=== PATIENT | female | born 1995 | race American Indian/Alaskan Native ===

== ENCOUNTER 2018-07-09 14:50 | Outpatient (CLI) | payer MEDICAID ==
[2018-07-09 15:35] VITALS: BP 109/68
== END 2018-07-09 16:40 | disposition home or self-care (01) ==
LOC: TRG 14:50
PROVIDERS: ATTEND Obstetrics & Gynecology
DX: O47.1 False labor at or after 37 completed weeks of gestation (principal); Z3A.39 39 weeks gestation of pregnancy
CPT/HCPCS: 59025

== ENCOUNTER 2018-07-10 04:18 | Inpatient (IN) | payer MEDICAID ==
[2018-07-10] MEDS ORDERED: AMPICILLIN/NS 2 GM/100 ML 2 GM/100 ML BAG IV ONE ×2 (05:09→05:10)
[2018-07-10] MEDS ORDERED: SUBLIMAZE IV PRN (05:09)
[2018-07-10] MEDS ORDERED: BRETHINE SUB-Q PRN (05:09)
[2018-07-10] MEDS ORDERED: STADOL IV PRN (05:09)
[2018-07-10] MEDS ORDERED: ZOFRAN IV PRN ×2 (05:09→08:37)
[2018-07-10] MEDS ORDERED: BRETHINE IVP PRN (05:09)
[2018-07-10] MEDS ORDERED: MINERAL OIL PO PRN (05:09)
[2018-07-10] MEDS ORDERED: XYLOCAINE 2% INFILTRATI ONE (05:09)
[2018-07-10] MEDS ORDERED: NARCAN 0.4 MG/1 ML IV PRN (05:09)
[2018-07-10] MEDS ORDERED: LACTATED RINGERS 1,000 ML ONE (05:10)
[2018-07-10] MEDS ORDERED: PITOCin/NS 30 UNIT/500ML 30 UNITS/500 ML BAG IV SCH (05:12)
[2018-07-10] MEDS ORDERED: ZITHROMAX PO ONE (05:13)
[2018-07-10 05:23] LABS: Hematocrit 27.2 % (30.3-42.9); Mean Corpuscular HGB Conc 33 % (30-34); Mean Corpuscular Volume 72 fl (79-97); Platelet Count 258 K/mm3 (140-440)
[2018-07-10 05:24] LABS: Red Cell Distribution Width 20.8 % (13.2-15.2)
--- NOTE | 2018-07-10 05:35 | History and Physical Report ---
History of Present Illness Date of examination: 07/10/18 Date of admission: 07/10/18 04:18 Chief complaint: contractions, leaking fluid History of present illness: Pt is a 23 year old -[place] female ADRIAN 07/12/18 at 39w5d who presents with regular contractions and advanced cervical dilation of 6 cm. She reports contractions all day and was discharged from triage earlier in 1 cm. She also reports leakage of fluid. 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 She is GBS positive. Past History Past Medical History: asthma Past Surgical History: no surgical history [employer] History: chlamydia (multiple times, positive on 06/21/18, treated on 06/30/18 ), herpes, trichomonas (treated with negative test of cure ) Family/Genetic History: diabetes, cancer Social history: no significant social history - Obstetrical History Expected Date of Delivery: 07/12/18 Actual Gestation: 39 Week(s) 5 Day(s) : 2 Para: 1 Hx # Term Pregnancies: 1 Number of Pregnancies: 0 Spontaneous Abortions: 0 Induced : 0 Number of Living Children: 1 Medications and Allergies Allergies Allergy/AdvReac Type Severity Reaction Status Date / Time No Known Allergies Allergy Verified 07/09/18 16:18 Home Medications Medication Instructions Recorded Confirmed Last Taken Type No Known Home Medications [No 07/09/18 07/09/18 Unknown History Reported Home Medications] Active Meds: Active Medications Butorphanol Tartrate (Stadol) 2 mg IV Q2H PRN PRN Reason: Pain , Severe (7-10) Ephedrine Sulfate (Ephedrine Sulfate) 10 mg IV Q2M PRN PRN Reason: Hypotension Fentanyl (Sublimaze) 100 mcg IV Q2H PRN PRN Reason: Labor Pain Oxytocin/Sodium Chloride (Pitocin/Ns 20 Unit/1000ml Drip) 20 units in 1,000 mls @ 125 mls/hr IV DIRECT SURESH Oxytocin/Sodium Chloride (Pitocin/Ns 30 Unit/500ml) 30 units in 500 mls @ 4 mls/hr IV TITR SURESH; Protocol Lactated Ringer's (Lactated Ringers) 1,000 mls @ 125 mls/hr IV DIRECT SURESH Ampicillin Sodium (Polycillin/Ns 2 Gm/100 Ml) 2 gm in 100 mls @ 100 mls/hr IV ONCE ONE; Protocol Stop: 07/10/18 06:08 Ampicillin Sodium (Ampicillin/Ns 1 Gm/50 Ml) 1 gm in 50 mls @ 100 mls/hr IV Q4HR SURESH; Protocol Mineral Oil (Mineral Oil) 30 ml PO QHS PRN PRN Reason: Constipation Naloxone HCl (Narcan 0.4 Mg/1 Ml) 0.1 mg IV Q2MIN PRN PRN Reason: Res Rate </= 8 or 02 SAT < 92% Ondansetron HCl (Zofran) 4 mg IV Q8H PRN PRN Reason: Nausea And Vomiting Terbutaline Sulfate (Brethine) 0.25 mg SUB-Q ONCE PRN PRN Reason: Hyperstimulation/Hypertonicity Terbutaline Sulfate (Brethine) 0.25 mg IVP ONCE PRN PRN Reason: Hyperstimulation/Hypertonicity Review of Systems All systems: negative - Vital Signs Vital signs: Vital Signs Pulse BP 98 H 123/60 07/10/18 04:26 07/10/18 04:26 Temp Pulse Resp BP Pulse Ox 98 H 123/60 07/10/18 04:26 07/10/18 04:26 - Physical Exam Breasts: Positive: deferred Cardiovascular: Regular rate Lungs: Positive: Clear to auscultation Abdomen: Positive: soft (gravid ) Uterus: Positive: enlarged (gravid ) Extremities: Positive: normal - Obstetrical FHR: auscultation normal Cervical Dilatation: 6.5 Cervical Effacement Percentage: 70 station: -2 Uterine Contraction Pattern: Regular Uterine Tone Measurement Phase: Resting Uterine Contraction Intensity: Strong/Firm Results Result Diagrams: 07/10/18 04:05 Abnormal lab results 07/10/18 Range/Units 04:05 WBC 13.3 H (4.5-11.0) K/mm3 Hgb 9.0 L (10.1-14.3) gm/dl Hct 27.2 L (30.3-42.9) % MCV 72 L (79-97) fl MCH 24 L (28-32) pg RDW 20.8 H (13.2-15.2) % All other labs normal. Assessment and Plan A: IUP at 39w5d Active labor Rupture of Membranes- Meconium GBS positive Chlamydia infection; most recent treatment on 06/30/18 with no test of cure P: Admit to labor and delivery GBS prophylaxis Azithromycin 1000 mg PO once Routine intrapartum care
[2018-07-10] MEDS ORDERED: PITOCin/NS 20 UNIT/1000ML DRIP 20 UNITS/1,000 ML BAG IV SCH ×2 (06:00→08:37)
[2018-07-10] MEDS ORDERED: LACTATED RINGERS 1,000 ML IV SCH (06:00)
[2018-07-10] MEDS ORDERED: CYTOTEC PR ONE (06:13)
[2018-07-10] MEDS ORDERED: CYTOTEC ONE (06:18)
--- NOTE | 2018-07-10 06:38 | Procedure Note ---
OB Delivery Note - Delivery Date of Delivery: 07/10/18 Surgeon: FARIDA MORALES Estimated blood loss: 500cc - Vaginal Delivery presentation: vertex Delivery position: OA Intrapartum events: decreased FHT variability, uterine atony (s/p Pitocin 10 units IM and Misoprostol 800 mcg per rectum ) Delivery monitor: external FHT, external uterine Route of delivery: Delivery placenta: spontaneous Episiotomy: none Delivery laceration: 1st degree (well approximating, hemostatic ), vaginal side wall (hemostatic ) Anesthesia: none - A at 1 minute: 8 at 5 minutes: 9 Gender: Male (3681g (8lb 2oz) @ 0605 am)
[2018-07-10] MEDS ORDERED: DERMOPLAST TP PRN (08:37)
[2018-07-10] MEDS ORDERED: NORCO 5/325 PO PRN (08:37)
[2018-07-10] MEDS ORDERED: TUCKS PAD TP PRN (08:37)
[2018-07-10] MEDS ORDERED: PHENERGAN PR PRN (08:37)
[2018-07-10] MEDS ORDERED: MILK OF MAGNESIA PO PRN (08:37)
[2018-07-10] MEDS ORDERED: SODIUM CHLORIDE FLUSH SYRINGE 10 ML IV NR (08:37)
[2018-07-10] MEDS ORDERED: PHENERGAN PO PRN (08:37)
[2018-07-10] MEDS ORDERED: LANSINOH TP PRN ×2 (08:37)
[2018-07-10] MEDS ORDERED: BENADRYL PO PRN (08:37)
[2018-07-10] MEDS ORDERED: TYLENOL PO PRN (08:37)
[2018-07-10] MEDS ORDERED: DULCOLAX PR PRN (08:37)
[2018-07-10] MEDS ORDERED: AMPICILLIN/NS 1 GM/50 ML 1 GM/50 ML BAG IV SCH (09:12)
[2018-07-10] MEDS: IBUPROFEN PO SCH ×2 (10:10→22:17)
[2018-07-10] MEDS: FEOSOL PO SCH ×2 (10:10→22:17)
[2018-07-10 20:21] LABS: Hematocrit 23.8 % (30.3-42.9); Hemoglobin 7.8 gm/dl (10.1-14.3)
[2018-07-11] MEDS: IBUPROFEN PO SCH ×2 (02:37→23:00)
[2018-07-11] MEDS ORDERED: BOOSTRIX IM ONE (06:00)
[2018-07-11] MEDS ORDERED: M-M-R II VACCINE SUB-Q ONE (06:38)
--- NOTE | 2018-07-11 08:35 | Progress Note ---
Assessment and Plan - Patient Problems (1) Vaginal delivery Current Visit: No Status: Acute Plan to address problem: patient doing well will need to be observed for 48 hours post delivery Subjective - Subjective Date of service: 07/11/18 Interval history: Patient doing well. Pain well controlled Patient reports: appetite normal, voiding normally, pain well controlled : doing well Objective - Vital Signs Latest vital signs: Vital Signs Temp Pulse Resp BP BP Pulse Ox 07/10/18 23:56 99.7 F H 72 18 96/59 99 07/10/18 19:41 98.5 F 93 H 18 115/62 99 07/10/18 16:11 99.1 F 99 H 18 104/45 07/10/18 12:26 98.0 F 91 H 18 97/41 Intake and Output 07/10/18 07/11/18 07/11/18 22:59 06:59 14:59 Intake Total 600 Balance 600 Intake: Oral 600 Other: Total, Intake Amount 240 # Voids Void 1 1 - Exam Abdomen: Present: normal appearance Uterus: Present: normal, firm - Labs Labs: Abnormal lab results 07/10/18 Range/Units 19:56 Hgb 7.8 L (10.1-14.3) gm/dl Hct 23.8 L (30.3-42.9) %
--- NOTE | 2018-07-11 08:36 | Discharge Summary ---
Providers - Providers Date of Admission: 07/10/18 04:18 Date of discharge: 07/12/18 Attending physician: FARIDA MORALES Primary care physician: FARIDA MORALES Hospitalization Reason for admission: active labor Delivery: Discharge diagnosis: IUP at term delivered baby: male Hospital course: Patient admitted in active labor. Has a . Did not receive adequate coverage for GBS. Patient observed for 48hrs Condition at discharge: Good Disposition: DC-01 TO HOME OR SELFCARE - Discharge Diagnoses (1) Vaginal delivery Status: Acute Plan - Discharge Medications Prescriptions: Ferrous Sulfate [Feosol 325 MG tab] 325 mg PO BID #60 tablet Ibuprofen [Motrin] 800 mg PO Q8HR PRN #30 tablet PRN Reason: Pain , Severe (7-10) HYDROcodone/APAP 5-325 [[place] 5/325] 1 each PO Q6HR PRN #20 tablet PRN Reason: Pain - Provider Discharge Summary Activity: no sex for 6 weeks, no heavy lifting 4 weeks, no strenuous exercise Diet: routine Instructions: routine Additional instructions: [] Smoking cessation referral if applicable(refer to patient education folder for contact #) [] Refer to [facility] Booklet Call your doctor immediately for: * Fever > 100.5 * Heavy vaginal bleeding ( >1 pad per hour) * Severe persistent headache * Shortness of breath * Reddened, hot, painful area to leg or breast * schedule followup in 4 weeks - Follow up plan
[2018-07-11] MEDS: FEOSOL PO SCH (10:18)
[2018-07-12] MEDS: FEOSOL PO SCH ×2 (00:05→12:26)
[2018-07-12 09:25] VITALS: BP 111/65
[2018-07-12] MEDS: IBUPROFEN PO SCH (12:26)
== END 2018-07-12 12:01 | disposition home or self-care (01) | DRG 775 ==
LOC: LD 04:18 → OB 08:07
PROVIDERS: ADMIT Obstetrics & Gynecology; ATTEND Obstetrics & Gynecology
PROC: 10E0XZZ Delivery of Products of Conception, External Approach (ICD-10-PCS; principal; 2018-07-10)
DX: O76 Abnormality in fetal heart rate and rhythm complicating labor and delivery (principal); Z3A.39 39 weeks gestation of pregnancy; Z37.0 Single live birth; O99.52 Diseases of the respiratory system complicating childbirth; O77.0 Labor and delivery complicated by meconium in amniotic fluid; O70.0 First degree perineal laceration during delivery; O62.2 Other uterine inertia; J45.909 Unspecified asthma, uncomplicated
CPT/HCPCS: 36415; 59025; 85014; 85018; 85027; 86592; 86850; 86900; 86901; 90471; G0378; J0290; J2590; J7120